=== PATIENT | female | born 1955 | race Caucasian/White ===

== ENCOUNTER 2017-08-03 09:04 | Day surgery (SDC) | payer OTHER ==
[2017-08-03] MEDS ORDERED: TEMAZEPAM 15 MG CAP PO PRN (09:07)
[2017-08-03] MEDS ORDERED: NS 1,000 ML IV SCH (09:07)
[2017-08-03] MEDS ORDERED: DIAZEPAM 5 MG TAB PO ONE (09:07)
[2017-08-03] MEDS ORDERED: diphenhydrAMINE 25 MG CAP PO ONE ×2 (09:07→09:25)
[2017-08-03] MEDS ORDERED: ACETAMINOPHEN 325 MG TAB PO PRN (09:07)
[2017-08-03] MEDS ORDERED: FAMOTIDINE 20 MG TAB PO ONE (09:07)
[2017-08-03] MEDS ORDERED: ASPIRIN EC 325 MG TAB PO ONE ×2 (09:07→09:25)
--- NOTE | 2017-08-03 09:21 | CPEKG ---
Heart Rate: 80 RR Interval: 750 P-R Interval: 188 QRSD Interval: 92 QT Interval: 392 QTC Interval: 453 P Alta: -1 QRS [place]: -9 T Wave [place]: -9 EKG Severity - ABNORMAL ECG - EKG Impression: SINUS RHYTHM EKG Impression: LEFT VENTRICULAR HYPERTROPHY EKG Impression: PROBABLE INFERIOR INFARCT, AGE INDETERMINATE Electronically Signed By: Philip Guido 05-Aug-2017 12:27:51
[2017-08-03] MEDS ORDERED: FAMOTIDINE 20 MG TAB ONE (09:25)
[2017-08-03] MEDS ORDERED: DIAZEPAM 5 MG TAB ONE (09:26)
[2017-08-03 09:44] LABS: PLATELET COUNT 246 10^3/uL (150-400)
[2017-08-03] MEDS ORDERED: LIDOCAINE 1% 300 MG/30 ML SDV ONE (10:09)
[2017-08-03 10:10] LABS: INR 1.05 (0.83-1.16); PROTIME(PATIENT) 13.9 SEC (12.0-15.0)
[2017-08-03] MEDS ORDERED: IOPAMIDOL (ISOVUE-370) 150 ML BTL IV ONE ×2 (10:10→11:16)
[2017-08-03] MEDS ORDERED: MIDAZOLAM 2 MG/2 ML VIAL ONE ×2 (10:10→10:58)
[2017-08-03] MEDS ORDERED: fentaNYL 100 MCG/2 ML INJ ONE ×2 (10:10→11:16)
--- NOTE | 2017-08-03 10:46 | PDPROPOC ---
Sedation Plan of Care Sedation Plan of Care: vital signs stable, mental status noted, patient educated of risks, benefits, alternatives, patient can tolerate sedation ASA Classification: ASA 2 Planned drugs: fentanyl, midazolam Mallampati Score: Class 2 Mallampati Reference Image: Patient passed 3-3-2 rule?: Yes
--- NOTE | 2017-08-03 10:47 | PDHPUP ---
History & Physical Update H&P update statement: This history and physical update is based on an assessment of the patient which was completed after admission or registration (within 24 hours), but prior to the surgery/procedure. H&P update: H&P reviewed & patient examined, no change in patient's condition since H&P completed
[2017-08-03] MEDS ORDERED: HEPARIN 10,000 UNIT/10 ML MDV (1,000 UNIT/ML) ONE (11:07)
[2017-08-03] MEDS ORDERED: ADENOSINE 90 MG/30 ML VIAL IV ONE (11:07)
--- NOTE | 2017-08-03 11:28 | PDDXCAT ---
Diagnostic Cath Note - . Date: 08/03/17 Environmental Project Manager: Eduar Indication: other (Ischemic cardiomyopathy with heart failure) - Procedure Access: right groin Procedure: left heart catheterization, coronary angiography, left ventriculogram , right heart catheterization - Materials Left Heart Cath size: 5F Left Heart Cath materials: standard multipack (JL4, JR4, pigtail) Right Heart Cath size: 7F Right Heart Cath materials: PWP catheter - Findings-Left Heart Catheterization LM: Unobstructed with angulation at the origin. LAD: Widely patent LAD stents with a indeterminate proximal stenosis at the level of the stent distal to a diagonal. LCX: Unobstructed RCA: Dominant: Unobstructed EDP: 13 mm of mercury LVEF: 20 % Wall motion: Global hypokinesis - Findings-Right Heart Catheterization RA: 5 mm of mercury RV: 32/8 mm of mercury PA: 32/15 mm of mercury PAOP: 13 mm of mercury Complications: None Estimated blood loss: <50ml Closure method: Angioseal Assessment: Contrast: 110 cc. Sedation 6 mg Versed 150 mcg of fentanyl. Radiation 388 mGy. Conclusions: Widely patent site of prior stenting with indeterminate stenosis of the proximal LAD. Severely reduced LV systolic function with ejection fraction of 20%. Normal right and left heart hemodynamics. Plan: FFR of the LAD. Intervention: After reviewing diagnostic angiograms it was elected to assess fractional flow reserve of the LAD in light of indeterminate stenosis and significant ischemic cardiomyopathy. Patient was administered 5000 units of heparin. Using a 6 [place] JL4 guiding catheter left main coronary selectively intubated. Using a 0.014 flow wire equalization was performed in the aorta. The wire was passed distal to the indeterminate stenosis. Patient was administered 140 micrograms/ kilos per minute of adenosine. Fractional flow reserve was estimated to be 0.91. Wire she has were withdrawn. The patient is taken to recovery for continued care conclusions indeterminate proximal LAD stenosis with good flow characteristics. Patient Problems: Problems Problem Status Onset Angina at rest Acute Coronary arteriosclerosis Acute SVT (supraventricular tachycardia) Acute AICD (automatic cardioverter/defibrillator) present Acute
[2017-08-03] MEDS ORDERED: ATROPINE SULFATE 1 MG/10 ML SYR ONE (12:52)
--- NOTE | 2017-08-03 13:19 | ECHO ---
[email or web address] [address] [address] Main: [phone] Fax: Transthoracic Echocardiogram Name: GELA SELF MR#: [id number] Study Date: 08/03/2017 Study Time: 09:53 AM Date of : 1955 Age: 62 year(s) Height: 152.4 cm (60 in.) Weight: 74.84 kg (165 lb.) BSA: 1.72 m2 Gender: Female Examination: Echo Indication: CHF/dyspnea at rest/hx defibrillator, previous echo 03/24/17 Image Quality: Technically Difficult Contrast: Requested by: Juan Jose Barrera BP: 162 mmHg/83 mmHg Heart Rate: Rhythm: Indication: CHF/dyspnea at rest/hx defibrillator, previous echo 03/24/17 Procedure Staff Pelletising Extruder Operator: Lucy Lawson [facility] Reading Physician: Ravindra Witt Requesting Provider: Conclusions: Global hypokinesis with ejection fraction by echo of 30%. Dilated left ventricle. ICD in the right heart. Right ventricular systolic pressure of 26 mm of mercury. No significant valvular abnormalities. Measurements: Chambers Valvular Assessment AV/MV Valvular Assessment TV/PV Normal Normal Normal Name Value Range Name Value Range Name Value Range Ao Niru (MM): 3.2 cm (2.2 cm-3.7 AV meanP mmHg ( - ) TR Vmax: 2.31 mm/s ( - ) cm) MV E Vmax: 0.50 m/s ( - ) TR PGmax: 21 mmHg ( - ) LVDd (2D): 5.6 cm (3.9 cm-5.3 MV A Vmax: 0.75 m/s ( - ) syst. PAP: 26 mmHg ( - ) cm) MV E/A: 0.67 ( - ) LVEF (MOD4): 27 % (>=55 %) EF Range: 30-35 % Continued Measurements: Chambers Valvular Assessment AV/MV Valvular Assessment TV/PV Name Value Name Value Name Value LADs: 4.1 cm MV E' Septal: 0.03 m/s CVP (est.): 5 mmHg LADs Lon.5 cm MV E/E' Septal: 15.50 LA Area: 23.6 cm2 MV E/E' Lateral: 8.80 TAPSE: 1.8 cm Findings: Left Ventricle: Mildly dilated left ventricle. Moderately reduced systolic LV function. The ejection fraction is estimated to be 30-35 %. Diastolic dysfunction is present. . LV basal/mid inferior and inferolateral rodriguez are akinetic. Apical inferior/ apical lateral rodriguez also are akinetic.. Patient: GELA SELF Study Date: 08/03/2017 Page 1 of 2 09:53 AM Right Ventricle: Normal size right ventricle. There is an ICD lead noted in the right ventricle. Left Atrium: The left atrium is mildly dilated. Right Atrium: The right atrium is normal in size. Mitral Valve: The mitral valve is normal in appearance and function. Mild mitral valve regurgitation is present. Aortic Valve: The aortic valve is normal in appearance and function. Trivial aortic valve regurgitation. Tricuspid Valve: The tricuspid valve is normal in appearance and function. Mild tricuspid regurgitation is present. The pulmonary artery pressure is normal. RVSP is 26mmHG.. Pulmonic Valve: Pulmonary valve not well visualized. Trivial pulmonic valve regurgitation. Aorta: The aorta is normal. Pericardium: No pericardial effusion. There is pericardial fat. (No Signature Object) Patient: GELA SELF Study Date: 08/03/2017 Page 2 of 2 09:53 AM [id number]
== END 2017-08-03 16:00 | disposition home or self-care (01) ==
LOC: FCATH 09:04
PROVIDERS: ATTEND Internal Medicine Interventional Cardiology
PROC: B2111ZZ Fluoroscopy of Multiple Coronary Arteries using Low Osmolar Contrast (ICD-10-PCS; principal; 2017-08-03)
PROC: 4A023N8 Measurement of Cardiac Sampling and Pressure, Bilateral, Percutaneous Approach (ICD-10-PCS; principal; 2017-08-03)
PROC: B2151ZZ Fluoroscopy of Left Heart using Low Osmolar Contrast (ICD-10-PCS; principal; 2017-08-03)
PROC: B245YZZ Ultrasonography of Left Heart using Other Contrast (ICD-10-PCS; principal; 2017-08-03)
PROC: 4A1335C Monitoring of Arterial Flow, Coronary, Percutaneous Approach (ICD-10-PCS; principal; 2017-08-03)
DX: I25.5 Ischemic cardiomyopathy (principal); R07.9 Chest pain, unspecified; R53.83 Other fatigue; I25.10 Atherosclerotic heart disease of native coronary artery without angina pectoris; I50.22 Chronic systolic (congestive) heart failure; J44.9 Chronic obstructive pulmonary disease, unspecified; I48.91 Unspecified atrial fibrillation; E78.5 Hyperlipidemia, unspecified; I11.0 Hypertensive heart disease with heart failure; I25.2 Old myocardial infarction; Z79.01 Long term (current) use of anticoagulants; Z86.73 Personal history of transient ischemic attack (TIA), and cerebral infarction without residual deficits; Z87.891 Personal history of nicotine dependence; Z95.5 Presence of coronary angioplasty implant and graft; Z95.810 Presence of automatic (implantable) cardiac defibrillator
CPT/HCPCS: 93005; 93306; 93460; 93571; C1769; C1887; C1760; J0153; J0461; J1644; J2250; J3010; Q9967

== ENCOUNTER 2018-04-19 13:56 | Emergency (ER) | payer OTHER ==
[2018-04-19 14:01] VITALS: BP 151/90
[2018-04-19] MEDS ORDERED: NITROFURANTOIN MACROBID 100 MG CAP PO ONE (14:12)
--- NOTE | 2018-04-19 14:18 | EDPHY ---
H & P Stated Complaint: sent Time Seen by Provider: 04/19/18 14:07 HPI/ROS: CHIEF COMPLAINT: Sent here for IV antibiotics HISTORY OF PRESENT ILLNESS: Patient is a 62-year-old female who was admitted to [facility] 8 days ago for pyelonephritis. She received IV Levaquin and her symptoms improved and she was discharged on p. O. Levaquin. She states that she has continued to feel better. She has still some remaining suprapubic pain but no dysuria and no flank pain and no fevers. No nausea vomiting. She saw her primary Dr. Wilson who received the culture results which revealed multi resistant E coli resistant to Levaquin. It was sensitive to Augmentin, Bactrim and Macrobid. Patient however has allergies to Augmentin and Macrobid such as hives. Dr. Wilson consulted Dr. Sarah who recommended she have extended spectrum testing for carbapenems. This came back sensitive and he recommended she come to the ER to receive IV Invanz with observation for monitoring for allergic reaction and then possibly discharged home with IV medications. Patient however feels quite well and has stable vital signs and does not think she needs to be admitted to the hospital. Severity: Moderate Modifying factors: None REVIEW OF SYSTEMS: Constitutional: denies: chills, fever, recent illness, recent injury EENTM: denies: blurred vision, double vision, nose congestion Respiratory: denies: cough, shortness of breath Cardiac: denies: chest pain, irregular heart rate, lightheadedness, palpitations Gastrointestinal/Abdominal: denies: abdominal pain, diarrhea, nausea, vomiting, blood streaked stools Genitourinary: See HPI Musculoskeletal: denies: joint pain, muscle pain Skin: denies: lesions, rash, jaundice, bruising Neurological: denies: headache, numbness, paresthesia, tingling, dizziness, weakness Hematologic/Lymphatic: denies: blood clots, easy bleeding, easy bruising Immunologic/allergic: denies: HIV/AIDS, transplant 10 systems reviewed and negative except as noted EXAM: GENERAL: Well-appearing, obese and in no acute distress. HEAD: Atraumatic, normocephalic. EYES: Pupils equal round and reactive to light, extraocular movements intact, sclera anicteric, conjunctiva are normal. ENT: TMs normal, nares patent, oropharynx clear without exudates. Moist mucous membranes. NECK: Normal range of motion, supple without lymphadenopathy or JVD. LUNGS: Breath sounds clear to auscultation bilaterally and equal. No wheezes rales or rhonchi. HEART: Regular rate and rhythm without murmurs, rubs or gallops. ABDOMEN: Soft, nontender, normoactive bowel sounds. No guarding, no rebound. No masses appreciated. BACK: No CVA tenderness, no spinal tenderness, step-offs or deformities EXTREMITIES: Normal range of motion, no pitting or edema. No clubbing or cyanosis. NEUROLOGICAL: Cranial nerves II through XII grossly intact. Normal speech, normal gait. 5/5 strength, normal movement in all extremities, normal sensation , normal reflexes PSYCH: Normal mood, normal affect. SKIN: Warm, dry, normal turgor, no visible rashes or lesions. Source: Patient Exam Limitations: No limitations - Personal History Current Tetanus Diphtheria and Acellular Pertussis (TDAP): No Tetanus Vaccine Date: 2013 - Medical/Surgical History Hx Asthma: No Hx Chronic Respiratory Disease: No Hx Diabetes: No Hx Cardiac Disease: Yes Hx Renal Disease: No Hx Cirrhosis: No Hx Alcoholism: No Hx HIV/AIDS: No Hx Splenectomy or Spleen Trauma: No Other PMH: tonsills, AICD-cardiomyopathy, Roya, knee scope; [place] x2; colon polypectomy three years ago - Family History Significant Family History: No pertinent family hx - Social History Smoking Status: Current some day smoker Alcohol Use: Sober Drug Use: None Constitutional: Initial Vital Signs Temperature (C) 37.1 C 04/19/18 13:58 Heart Rate 91 04/19/18 13:58 Respiratory Rate 16 04/19/18 13:58 Blood Pressure 151/90 H 04/19/18 13:58 O2 Sat (%) 92 04/19/18 13:58 O2 Delivery Mode Room Air Allergies/Adverse Reactions: amoxicillin [From Augmentin] Allergy (Verified 04/19/18 14:04) azithromycin Allergy (Verified 04/19/18 14:04) cefdinir [From Omnicef] Allergy (Verified 04/19/18 14:04) clavulanic acid [From Augmentin] Allergy (Verified 04/19/18 14:04) metoprolol Allergy (Verified 04/19/18 14:03) nitroglycerin [Nitroglycerin] Allergy (Verified 01/30/11 13:49) Other-Enter Comments Sulfa (Sulfonamide Antibiotics) Allergy (Verified 01/27/11 09:49) Other-Enter Comments cholesterol meds Allergy (Uncoded 04/19/18 14:04) Home Medications: Medication Instructions Recorded LORazepam [Ativan (*)] 1 mg PO TID PRN 01/27/11 Pantoprazole Sodium [Protonix 40mg 40 mg PO BID@,01/27/11 (*)] oxyCODONE/APAP 5/325 [Percocet 1 tab PO QID 11/06/11 5/325 (*)] Aspirin [Aspirin 81mg (*)] 81 mg PO DAILY@11/07/11 Cholecalciferol Vit D3 [Vitamin D3 2,000 units PO DAILY@11/07/11 2000 units] Ranitidine HCl [Zantac] 150 mg PO HS 05/05/13 Nitroglycerin [Nitrostat 0.4 mg 0.4 mg SL PRN PRN 05/24/15 (*)] Warfarin Sodium [Coumadin 1MG (*)] 1 mg PO MO@159907/09/15 Warfarin Sodium [Coumadin 3MG (*)] 3 mg PO SUTUWETHFRSA@159907/09/15 Nebivolol HCl [Bystolic 5 mg (*)] 10 mg PO BID 08/07/15 Albuterol [Proventil Inhaler HFA 1 - 2 puffs IH Q4H PRN 08/01/17 (*)] Mometasone/Formoterol [Dulera 100 1 puffs IH BID 08/01/17 Mcg/5 Mcg Inhaler] Sacubitril/Valsartan 24/26Mg 1 ea PO BID 08/01/17 [Entresto 24 mg/26 mg (RX)] Torsemide 40 mg PO DAILY 08/01/17 Dulera 100 Mcg/5 Mcg Inhaler 04/19/18 Nitrofurantoin Monohyd/M-Cryst 100 mg PO BID #20 cap 04/19/18 [Nitrofurantoin [place]-Macrocrystal] Medical Decision Making ED Course/Re-evaluation: The patient's urine culture also has sensitivity to Macrobid. This was not mention previously. I have paged Dr. Shakir Sarah as well as Dr. Wilson to discuss this as possible option. We may be able to avoid hospitalization. The patient clinically is well appearing. The patient also would prefer this. 2:30 p.m. I discussed the case with Dr. Wilson who states he did not notice that it was sensitive to Macrobid. He agrees with treating her with this and will follow up with her in his office as previously scheduled on Tuesday. Differential Diagnosis: Partial list of the Differential diagnosis considered include but were not limited to; urinary tract infection, pyelonephritis and although unlikely based on the history and physical exam, I also considered sepsis, kidney stone. I discussed these differential diagnoses and the plan with the patient as well as the usual and expected course. The patient understands that the diagnosis is provisional and that in medicine we are not always correct and that further workup is often warranted. Usual and customary warnings were given. All of the patient's questions were answered. The patient was instructed to return to the emergency department should the symptoms at all worsen or return, otherwise to followup with the physician as we discussed. - Data Points Medications Given: Discontinued Medications Nitrofurantoin Macrocrystals (Macrobid) 100 mg PO EDNOW ONE PRN Reason: Protocol Stop: 04/19/18 14:13 Last Admin: 04/19/18 14:37 Dose: 100 mg Departure - Departure Disposition: Home, Routine, Self-Care Clinical Impression: Urinary tract infection Qualifiers: Urinary tract infection type: acute cystitis Hematuria presence: without hematuria Qualified Code(s): N30.00 - Acute cystitis without hematuria Condition: Fair Instructions: Urinary Tract Infection in Women (ED) Referrals: Jordon Wilson MD [Primary Care Provider] - 5-7 days, call for appt. (Follow- up on Tuesday as planned) Prescriptions: Nitrofurantoin Monohyd/M-Cryst [Nitrofurantoin [place]-Macrocrystal] 100 mg PO BID #20 cap
== END 2018-04-19 14:48 | disposition home or self-care (01) ==
DX: N30.00 Acute cystitis without hematuria (principal); B96.20 Unspecified Escherichia coli [E. coli] as the cause of diseases classified elsewhere; Z16.23 Resistance to quinolones and fluoroquinolones; F17.200 Nicotine dependence, unspecified, uncomplicated; Z88.1 Allergy status to other antibiotic agents; Z88.0 Allergy status to penicillin; Z88.2 Allergy status to sulfonamides

== ENCOUNTER 2018-11-06 06:52 | Emergency (ER) | payer OTHER ==
--- NOTE | 2018-11-06 06:58 | EDPHY ---
H & P Time Seen by Provider: 11/06/18 06:57 HPI/ROS: CHIEF COMPLAINT: Palpitations, dizziness, chest pressure HISTORY OF PRESENT ILLNESS: The patient presents to the ED with intermittent palpitations, dizziness and chest pressure. The symptoms have been occurring over the past several days. She had a similar episode last week and was told that she had a short run of VT. The patient does have a AICD. The patient has a history of ischemic cardiomyopathy. In reviewing her records her last coronary angiogram was in July 2017 and demonstrated no evidence of critical stenosis or flow limiting disease. The patient does report that she is under fair amount of stress secondary to problems at work. She did see her machine veneer repairer last week. The patient denies any fever, cough or congestion. She denies any vomiting or diarrhea. She denies any acute headache or focal neurologic symptoms. REVIEW OF SYSTEMS: A comprehensive 10 point review of systems is otherwise negative aside from elements mentioned in the history of present illness. Source: Patient Exam Limitations: No limitations - Personal History Tetanus Vaccine Date: 2013 - Medical/Surgical History Hx Asthma: No Hx Chronic Respiratory Disease: No Hx Diabetes: No Hx Cardiac Disease: Yes Hx Renal Disease: No Hx Cirrhosis: No Hx Alcoholism: No Hx HIV/AIDS: No Hx Splenectomy or Spleen Trauma: No Other PMH: tonsills, AICD-cardiomyopathy, Roya, knee scope; [place] x2; colon polypectomy three years ago - Social History Smoking Status: Current some day smoker - Physical Exam Exam: General Appearance: Alert, no distress, short stature Eyes: Pupils equal and round no pallor or injection ENT, Mouth: Mucous membranes moist Respiratory: There are no retractions, lungs are clear to auscultation Cardiovascular: Regular rate and rhythm Gastrointestinal: Abdomen is soft and nontender, no masses, bowel sounds normal Neurological: 5/5 strength noted all 4 extremities Skin: Warm and dry, no rashes Musculoskeletal: Neck is supple nontender Extremities: symmetrical, full range of motion Constitutional: Initial Vital Signs Temperature (C) 36.7 C 11/06/18 06:57 Heart Rate 73 11/06/18 06:57 Respiratory Rate 14 11/06/18 06:57 Blood Pressure 159/91 H 11/06/18 06:57 O2 Sat (%) 94 11/06/18 06:57 O2 Delivery Mode Room Air Allergies/Adverse Reactions: amoxicillin [From Augmentin] Allergy (Verified 11/06/18 07:00) azithromycin Allergy (Verified 11/06/18 07:00) cefdinir [From Omnicef] Allergy (Verified 11/06/18 07:00) clavulanic acid [From Augmentin] Allergy (Verified 11/06/18 07:00) metoprolol Allergy (Verified 11/06/18 07:00) nitroglycerin [Nitroglycerin] Allergy (Verified 11/06/18 07:00) Other-Enter Comments Sulfa (Sulfonamide Antibiotics) Allergy (Verified 11/06/18 07:00) Other-Enter Comments cholesterol meds Allergy (Uncoded 11/06/18 07:00) Home Medications: Medication Instructions Recorded LORazepam [Ativan (*)] 1 mg PO TID PRN 01/27/11 Pantoprazole Sodium [Protonix 40mg 40 mg PO BID@,01/27/11 (*)] oxyCODONE/APAP 5/325 [Percocet 1 tab PO QID 11/06/11 5/325 (*)] Aspirin [Aspirin 81mg (*)] 81 mg PO DAILY@11/07/11 Cholecalciferol Vit D3 [Vitamin D3 2,000 units PO DAILY@11/07/11 2000 units] Ranitidine HCl [Zantac] 150 mg PO HS 05/05/13 Nitroglycerin [Nitrostat 0.4 mg 0.4 mg SL PRN PRN 05/24/15 (*)] Warfarin Sodium [Coumadin 1MG (*)] 1 mg PO MO@159907/09/15 Warfarin Sodium [Coumadin 3MG (*)] 3 mg PO SUTUWETHFRSA@159907/09/15 Nebivolol HCl [Bystolic 5 mg (*)] 10 mg PO BID 08/07/15 Albuterol [Proventil Inhaler HFA 1 - 2 puffs IH Q4H PRN 08/01/17 (*)] Mometasone/Formoterol [Dulera 100 1 puffs IH BID 08/01/17 Mcg/5 Mcg Inhaler] Sacubitril/Valsartan 24/26Mg 1 ea PO BID 08/01/17 [Entresto 24 mg/26 mg (RX)] Torsemide 40 mg PO DAILY 08/01/17 Dulera 100 Mcg/5 Mcg Inhaler 04/19/18 Nitrofurantoin Monohyd/M-Cryst 100 mg PO BID #20 cap 04/19/18 [Nitrofurantoin [place]-Macrocrystal] Medical Decision Making - Diagnostics EKG Interpretation: EKG: Complete interpretation has been separately recorded in the [email or web address] archive. Summary impression: Sinus rhythm, rate 70, nonspecific ST T wave changes noted. ED Course/Re-evaluation: Patient presents to the ED with presyncope palpitations that have been occurring over the past weekend. The patient does admit to being under fair amount of stress. I reviewed her angiogram from 2018. I did ambulate the patient in the emergency department and was able to recreate her symptoms. She was noted to be in a sinus rhythm at 90 while symptomatic. She had no hypotension or hypertension. The patient has a normal troponin. I did consult with Dr. Sabrina Correia from Cardiology. We are able to verify no significant tachyarrhythmias were noted over the weekend. The patient has no evidence of a critical anemia or metabolic derangement. It certainly does appear that stress is likely contributing to her symptoms. At this point time I do feel the patient can be discharged home and follow up with her regular machine veneer repairer in the clinic. Differential Diagnosis: Differential diagnosis considered includes acute coronary syndrome, dehydration , arrhythmia, metabolic abnormality, anxiety - Data Points Laboratory Results: Laboratory Results 11/06/18 07:00 11/06/18 07:00 11/06/18 11/06/18 11/06/18 07:12 07:00 07:00 WBC 6.82 10^3/uL 10^3/uL (3.80-9.50) RBC 4.55 10^6/uL 10^6/uL (4.18-5.33) Hgb 13.5 g/dL g/dL (12.6-16.3) Hct 40.1 % % (38.0-47.0) MCV 88.1 fL fL (81.5-99.8) MCH 29.7 pg pg (27.9-34.1) MCHC 33.7 g/dL g/dL (32.4-36.7) RDW 13.2 % % (11.5-15.2) Plt Count 273 10^3/uL 10^3/uL (150-400) MPV 9.7 fL fL (8.7-11.7) Neut % (Auto) 76.6 % H % (39.3-74.2) Lymph % (Auto) 14.5 % L % (15.0-45.0) [place] % (Auto) 7.5 % % (4.5-13.0) Eos % (Auto) 0.6 % % (0.6-7.6) Baso % (Auto) 0.7 % % (0.3-1.7) Nucleat RBC Rel Count 0.0 % % (0.0-0.2) Absolute Neuts (auto) 5.22 10^3/uL 10^3/uL (1.70-6.50) Absolute Lymphs (auto) 0.99 10^3/uL L 10^3/uL (1.00-3.00) Absolute Monos (auto) 0.51 10^3/uL 10^3/uL (0.30-0.80) Absolute Eos (auto) 0.04 10^3/uL 10^3/uL (0.03-0.40) Absolute Basos (auto) 0.05 10^3/uL 10^3/uL (0.02-0.10) Absolute Nucleated RBC 0.00 10^3/uL 10^3/uL (0-0.01) Immature Gran % 0.1 % % (0.0-1.1) Immature Gran # 0.01 10^3/uL 10^3/uL (0.00-0.10) Sodium 138 mEq/L mEq/L (135-145) Potassium 4.0 mEq/L mEq/L (3.5-5.2) Chloride 104 mEq/L mEq/L (97-110) Carbon Dioxide 25 mEq/l mEq/l (22-31) Anion Gap 9 mEq/L mEq/L (6-14) BUN 20 mg/dL mg/dL (7-23) Creatinine 0.8 mg/dL mg/dL (0.6-1.0) Estimated GFR > 60 Glucose 94 mg/dL mg/dL (70-100) Calcium 9.4 mg/dL mg/dL (8.5-10.4) POC Troponin I 0.00 ng/mL ng/mL (0.00-0.08) Point of Care Test Results: Chemistry 11/06/18 07:12 POC Troponin I 0.00 ng/mL ng/mL (0.00-0.08) Departure - Departure Disposition: Home, Routine, Self-Care Clinical Impression: Palpitations Condition: Good Instructions: Heart Palpitations (ED) Additional Instructions: 1. The testing done in the emergency department today demonstrates no significant abnormality. 2. No worrisome arrhythmia was detected by your AICD device over the weekend. 3. Please contact Dr. Barrera to schedule an office appointment. Referrals: Jordon Wilson MD [Primary Care Provider] - As per Instructions
--- NOTE | 2018-11-06 07:18 | CPEKG ---
Test Reason : OPEN Blood Pressure : / mmHG Vent. Rate : 070 BPM Atrial Rate : 070 BPM P-R Int : 186 ms QRS Dur : 095 ms QT Int : 444 ms P-R-T Axes : 018 -13 049 degrees QTc Int : 480 ms Sinus rhythm Left ventricular hypertrophy Inferior infarct, old Anterior Q waves, possibly due to LVH Lateral leads are also involved Confirmed by Froilan Braun ([id number]) on 11/06/2018 7:18:08 AM Referred By: Froilan Braun Confirmed By:Froilan Braun
[2018-11-06 07:20] LABS: PLATELET COUNT 273 10^3/uL (150-400)
[2018-11-06 08:56] VITALS: BP 145/80
== END 2018-11-06 08:58 | disposition home or self-care (01) ==
DX: R00.2 Palpitations (principal); R07.9 Chest pain, unspecified; R42 Dizziness and giddiness
CPT/HCPCS: 84484-ER